=== PATIENT | female | born 1990 | race Caucasian/White ===

== ENCOUNTER 2018-07-04 23:09 | Inpatient (IN) | payer MEDICAID ==
[~2018-07-04] VITALS: Ht 152.4 cm; Wt 49.4 kg
[2018-07-04 23:15] VITALS: Ht 152.4 cm; Wt 49.4 kg
--- NOTE | 2018-07-04 23:32 | NUR ---
PT CAME IN FOR ALCOHOL WITHRDRAWL SYMPTOMS. WHEN ASKED, PT STATES "I USUALLY DRINK A FIFTH OF VODKA A DAY. I'VE BEEN TRYING TO TAPER OFF AT HOME BUT I'M STARTING TO GO INTO WITHDRAWLS NOW." PT STATES LAST ALCOHOLIC DRINK WAS 1HR AGO AND STATES SHE DRANK 1 BEER. PT AWAKE, ALERT, RESPIRATIONS EVEN AND UNLABORED. BILATERAL ARM TREMORS NOTED WHEN ARMS EXTENDED. SAFETY PRECAUTIONS IN PLACE
--- NOTE | 2018-07-04 23:34 | NUR ---
DR. CARTER AT BEDSIDE FOR MSE
--- NOTE | 2018-07-04 23:45 | NUR ---
PT NOT FOUND IN ROOM. PER EVS WORKER, PT WAS LAST SEEN WALKING TO LOBBY. DR. CARTER MADE AWARE
--- NOTE | 2018-07-05 00:09 | NUR ---
PT FOUND BACK IN BED. SHE STATED SHE WAS IN LOBBY. WHEN ASKED WHY SHE WENT TO LOBBY, PT STATES "THE DOCTOR SAID I WAS GOING TO GET AN IV. I DON'T NEED AN IV, I NEED MEDICATION." VERBALIZED TO PATIENT THAT THE IV IS TO GIVE HER MEDICATION THROUGH IT. PT DID NOT REPLY AND MOTHER APOLOGIZED. DR. CARTER MADE AWARE OF ABOVE. PT AMBULATED TO RESTROOM WITH STEADY GAIT WITH NO DEFICITS NOTED
[2018-07-05 00:15] LABS: BASOPHIL % 0.5 % (0-2); PLATELET COUNT 200 x10^3mcL (130-400); RED CELL DISTRIBUTION WIDTH 14.2 % (11.5-14.5)
[2018-07-05 00:26] LABS: CALCIUM 8.1 mg/dL (8.5-10.1); CARBON DIOXIDE 26.1 mmol/L (21-32); CHLORIDE SERUM 109 mmol/L (98-107); CREATININE SERUM 0.6 mg/dL (0.6-1.0); GFR1 > 60 mL/min; GLUCOSE SERUM 108 mg/dL (74-106); POTASSIUM SERUM 3.5 mmol/L (3.5-5.1); SODIUM SERUM 145 mmol/L (136-145)
[2018-07-05 00:32] LABS: ALBUMIN 3.8 g/dL (3.4-5.0); ALKALINE PHOSPHATASE 118 U/L (46-116); ALT/SGPT 30 U/L (14-59); AST/SGOT 40 U/L (15-37); BILIRUBIN TOTAL 0.1 mg/dL (0.20-1.00); CHOLESTEROL 196 mg/dL (<200); PHOSPHOROUS 2.8 mg/dL (2.5-4.9); TOTAL PROTEIN, SERUM 7.2 g/dL (6.4-8.2); URIC ACID 2.8 mg/dL (2.6-6.0)
[2018-07-05 00:34] LABS: HDL CHOLESTEROL 68 mg/dL (40-60)
--- NOTE | 2018-07-05 00:41 | NUR ---
PT CURRENTLY RESTING WITH EYES CLOSED, RESPIRATIONS EVEN AND UNLABORED. SAFETY PRECAUTIONS IN PLACE
[2018-07-05] MEDS ORDERED: ZOLOFT25 MG (01:35)
[2018-07-05] MEDS ORDERED: SEROQUEL25 MG (01:35)
[2018-07-05 01:37] LABS: microscopic required? NO
--- NOTE | 2018-07-05 01:38 | NUR ---
REPORT GIVEN TO ELDA MO, ALL QUESTIONS AND CONCERNS WERE ADDRESSED
--- NOTE | 2018-07-05 01:55 | NUR ---
RECEIVED PT FROM ED VIA ILDA BAKER OF ALCOHOL WITHDRAWALS. PT IS AOX4. NO ACUTE DISTRESS NOTED. NO SOB ON RA. EVEN AND UNLABORED RESPIRATIONS NOTED. ATTACHED TELE #12 READING SR 72. DENIES ANY CHEST PAIN/PRESSURE. SZ PRECAUTIONS INITIATED. IV PATENT AND INTACT INFUSING NS @ 100 ML/HR PER EMAR. BED IN LOWEST POSITION. SIDE RAILS UP X2. CALL LIGHT WITHIN REACH. WILL CONTINUE TO MONITOR.
[2018-07-05 02:19] LABS: UA SPECIFIC GRAVITY <=1.005 (1.005-1.035); urine erythrocyte NEGATIVE (NEGATIVE)
[2018-07-05 02:24] VITALS: BP 118/80
[2018-07-05 02:28] LABS: AMPHETAMINE QUAL UR NONE DETECTED (See below)
[2018-07-05 02:41] LABS: T3 TOTAL 0.9 ng/mL
[2018-07-05 02:43] LABS: FREE T4 0.57 ng/dL (0.76-1.46); FREE THYROXINE INDEX 1.7 ug/dL (1.4-4.5); T4(THYROXINE) 5.3 ug/dL (4.7-13.3)
[2018-07-05 05:21] VITALS: BP 94/56
[2018-07-05 06:20] LABS: CALCIUM 7.3 mg/dL (8.5-10.1); CARBON DIOXIDE 22.6 mmol/L (21-32); CHLORIDE SERUM 108 mmol/L (98-107); CREATININE SERUM 0.4 mg/dL (0.6-1.0); GFR1 > 60 mL/min; GLUCOSE SERUM 79 mg/dL (74-106); POTASSIUM SERUM 3.6 mmol/L (3.5-5.1); SODIUM SERUM 142 mmol/L (136-145)
[2018-07-05 06:30] LABS: PLATELET COUNT 187 x10^3mcL (130-400); RED CELL DISTRIBUTION WIDTH 14.1 % (11.5-14.5)
--- NOTE | 2018-07-05 07:24 | NUR ---
RECEIVED PT RESTING IN BED WITH EYES CLOSED, AROUSABLE. SEIZURE PRECAUTIONS IN PLACE. RESP EVEN AND UNLABORED ON RA. IV TO RAC, NO REDNESS OR SWELLING NOTED. MOTHER AT BEDSIDE. BED IN LOW POSITION, CALL LIGHT WITHIN REACH. WILL CONTINUE TO MONITOR.
[2018-07-05 09:21] VITALS: BP 112/77
[2018-07-05 12:21] VITALS: BP 112/66
--- NOTE | 2018-07-05 14:19 | NUR ---
PT RESTING IN BED WATCHING TV. NO ACUTE DISTRESS. SEIZURE PRECAUTIONS IN PLACE. PT AAOX4. STATED MILD SWELLING TO FACE IS BETTER. CALL LIGHT WITHIN REACH. WILL CONTINUE TO MONITOR.
--- NOTE | 2018-07-05 14:59 | NUR ---
Discount pharmacy card and list to low cost medical clinics given to patient by Gabriele.
[2018-07-05 16:59] VITALS: BP 111/66
--- NOTE | 2018-07-05 18:30 | NUR ---
PT IN NO ACUTE DISTRESS. RESTING IN BED. AAOX4. SEIZURE PRECAUTIONS IN PLACE. RESP EVEN AND UNLABORED ON RA. IMPROVED FACIAL SWELLING. IVF INFUSING, NO REDNESS OR SWELLING. BED IN LOW POSITION, CALL LIGHT WITHIN REACH. WILL ENDORSE TO ONCOMING SHIFT.
--- NOTE | 2018-07-05 19:25 | NUR ---
CARE ASSUMED FROM OUTGOING RN. PT RESTING COMFORTABLY IN BED. SZ PRECAUTION IN PLACE. NO ACUTE DISTRESS NOTED. NO SOB, EVEN AND UNLABORED RESPIRATIONS ON RA. ON TELE #12 READING SB/SA 57. DENIES ANY PAIN A THIS TIME. IV PATENT AND INTACT INFUSING FLUIDS PER EMAR. BED IN LOWEST POSITION. SIDE RAILS UP X2. CALL LIGHT WITHIN REACH. WILL CONTINUE TO MONITOR.
[2018-07-05 20:02] VITALS: BP 137/91
--- NOTE | 2018-07-06 00:30 | NUR ---
PT ASLEEP IN BED COMFORTABLY. NO ACUTE DISTRESS NOTED. EVEN AND UNLABORED RESPIRATION NOTED ON RA. IV PATENT AND INTACT INFUSING FLUIDS PER EMAR. NO SEIZURE ACTIVITY NOTED. SZ PRECAUTION IN PLACE. BED IN LOWEST POSITION. SIDE RAILS UP X2. CALL LIGHT WITHIN REACH. WILL CONTINUE TO MONITOR.
[2018-07-06 05:10] VITALS: BP 109/62
[2018-07-06 06:57] LABS: BASOPHIL % 1.1 % (0-2); PLATELET COUNT 169 x10^3mcL (130-400); RED CELL DISTRIBUTION WIDTH 13.6 % (11.5-14.5)
--- NOTE | 2018-07-06 07:00 | NUR ---
RECEIVED BEDSIDE REPORT FROM STOCK TRADER NURSE. PATIENT IS SLEEPING COMFORTABLY IN BED. NO SIGNS OF PAIN OR RESPIRATORY DISTRESS. BED IN LOW POSITION. BEDRAILS UP, SEIZURE PRECAUTIONS IN PLACE. IV IS INFUSING WELL. WILL CONTINUE NURSING CARE.
[2018-07-06 07:25] LABS: CALCIUM 8.3 mg/dL (8.5-10.1); CARBON DIOXIDE 23.5 mmol/L (21-32); CHLORIDE SERUM 102 mmol/L (98-107); CREATININE SERUM 0.5 mg/dL (0.6-1.0); GFR1 > 60 mL/min; GLUCOSE SERUM 85 mg/dL (74-106); MAGNESIUM 1.8 mg/dL (1.8-2.4); PHOSPHOROUS 3.3 mg/dL (2.5-4.9); POTASSIUM SERUM 3.8 mmol/L (3.5-5.1); SODIUM SERUM 137 mmol/L (136-145)
--- NOTE | 2018-07-06 09:05 | NUR ---
DR MEDINA WAS MADE AWARE PT CALCIUM LEVEL IS 8.3. NO FURTHER ORDERS GIVEN AT THIS TIME.
--- NOTE | 2018-07-06 10:06 | NUR ---
PATIENT IS RESTNG COMFORTABLY IN BED. NO SIGNS OF APPARENT SOB OR RESPIRATORY DISTRESS. PATIENT DENIES PAIN OR NAUSEA AT THIS TIME. QUESTIONS AND CONCERNS ADDRESSED. SAFETY PRECAUTIONS MAINTAINED.
[2018-07-06 10:20] VITALS: BP 107/70
[2018-07-06] MEDS ORDERED: THI100 PO (11:06)
[2018-07-06] MEDS ORDERED: NATURE'S BLEND F1 MG PO (11:06)
[2018-07-06] MEDS ORDERED: ZOF4 PO (11:09)
--- NOTE | 2018-07-06 12:00 | NUR ---
PATIENT IS RESTING COMFORTABLY IN BED. NO SIGNS OF APPARENT RESPIRATORY DISTRESS. PATIENT DENIES PAIN, N/V. QUESTIONS AND CONCERNS ADDRESSED. SAFETY PRECAUTIONS MAINTAINED. IV IS INFUSING WELL.
[2018-07-06 13:17] VITALS: BP 107/70
--- NOTE | 2018-07-06 14:00 | NUR ---
PATIENT IS RESTING COMFORTABLY IN BED, NO SIGNS OF SOB, NO APPARENT RESPIRATORY DISTRESS NOTED. QUESTIONS AND CONCERNS ADDRESSED. SAFETY PRECAUTIONS IN PLACE.
[2018-07-06 14:36] VITALS: BP 135/78
--- NOTE | 2018-07-06 16:00 | NUR ---
PATIENT STABLE, NO APPARENT SIGNS OF SOB, RESPIRATORY DISTRESS, OR PAIN NOTED PATIENT GIVEN DISCHARGE INSTRUCTIONS INCUDING EDUCATIONAL MATERIAL ABOUT DIAGNOSIS AND PRESCRIPTIONS FOR MEDICATIONS. THE PATIENT VERBALIZED UNDERSTANDING OF INSTRUCTIONS. IV DISCONTINUED, ID BAND REMOVED, TELE MONITOR REMOVED AND RETURNED. ALL PERSONAL BELONGINGS WITH PATIENT. PATIENT WAS TAKEN DOWN VIA WHEEL CHAIR BY [place].
== END 2018-07-06 18:52 | disposition home or self-care (01) | DRG 775 ==
LOC: ED 23:09 → DU 07-05 01:02
PROVIDERS: Emergency Medicine; ADMIT Internal Medicine
DX: F10.121 Alcohol abuse with intoxication delirium (principal); E83.51 Hypocalcemia; E02 Subclinical iodine-deficiency hypothyroidism; F32.9 Major depressive disorder, single episode, unspecified; R74.0 Nonspecific elevation of levels of transaminase and lactic acid dehydrogenase [LDH]; Y90.8 Blood alcohol level of 240 mg/100 ml or more; Y90.1 Blood alcohol level of 20-39 mg/100 ml
CPT/HCPCS: 84439; G0480; J2060; J2405; J7030; Q0092